=== PATIENT | male | born 1985 | race Caucasian/White ===

== ENCOUNTER 2018-04-24 20:05 | Emergency (ER) | payer OTHER ==
[2018-04-24] MEDS: morphine 10 MG INJ IM (21:10)
[2018-04-24] MEDS: KETOROLAC 60 MG INJ IM (21:11)
[2018-04-24] MEDS: METHOCARBAMOL 750 MG TAB PO (21:25)
[2018-04-24] MEDS: LORAZEPAM 1 MG TAB PO (22:06)
[2018-04-24] MEDS: OXYCODONE/ACETAMINOPHEN (5/325) TAB PO (22:57)
== END 2018-04-25 00:44 | disposition home or self-care (01) ==
LOC: E/R 04-25 00:44
DX: M54.9 Dorsalgia, unspecified (principal); R40.2142 Coma scale, eyes open, spontaneous, at arrival to emergency department; R40.2362 Coma scale, best motor response, obeys commands, at arrival to emergency department; R40.2252 Coma scale, best verbal response, oriented, at arrival to emergency department
CPT/HCPCS: 96372; 99284-25